=== PATIENT | male | born 1990 | race Caucasian/White ===

== ENCOUNTER 2022-08-17 23:26 | Emergency (ER) | payer OTHER ==
[~2022-08-17] VITALS: Ht 180.3 cm; Wt 79.5 kg
[2022-08-17 23:41] VITALS: BP 111/78
== END 2022-08-18 02:03 | disposition left against medical advice (07) ==
LOC: ER 23:26
DX: R11.2 Nausea with vomiting, unspecified (principal); R50.9 Fever, unspecified; R51.9 Headache, unspecified; Z53.21 Procedure and treatment not carried out due to patient leaving prior to being seen by health care provider

== ENCOUNTER 2022-08-18 11:04 | Inpatient (IN) | payer OTHER ==
[~2022-08-18] VITALS: Ht 180.3 cm; Wt 84.3 kg
[2022-08-18 11:30] LABS: Hematocrit 42.6 % (41.0-53.0); Hemoglobin 14.7 g/dL (13.5-17.5); Mean Corpuscular Hemoglobin 29.9 pg (28.0-32.0); Mean Corpuscular Hgb Conc. 34.5 g/dL (32.0-36.0); Mean Corpuscular Volume 86.5 fL (80.0-100.0); Red Blood Cells 4.92 10^6/uL (4.5-5.90); Red Cell Distribution Width 12.8 % (11.8-14.3); White Blood Cell 16.9 10^3/uL (4.4-10.8)
[2022-08-18] MEDS ORDERED: LORazepam 2MG/ML-1ML VIAL IV ONE (11:30)
[2022-08-18] MEDS ORDERED: SODIUM CHLORIDE 0.9% 1,000 ML IV ONE ×3 (11:30→17:15)
[2022-08-18 11:45] LABS: Albumin 2.9 g/dL (3.4-5.0); BUN/Creatinine Ratio 13.8 (10.0-20.0); Calcium 8.7 mg/dL (8.5-10.1); Potassium 3.5 mmol/L (3.5-5.1)
[2022-08-18 11:46] LABS: Bilirubin, Total 0.9 mg/dL (0.2-1.0); Total Protein 7.4 g/dL (6.4-8.2)
[2022-08-18 12:18] LABS: Basophils % (manual) 0 (0.0-2.0); Blast Cells 0; Eosinophils % (manual) 0 (0-7); Metamyelocytes % 0; Myelocytes % 0; Promyelocytes % 0; Reactive Lymphocytes 0
[2022-08-18 13:14] LABS: Band Neutrophils % (manual) 14; Lymphocytes % (manual) 4 (10.0-50.0); Monocytes % (manual) 1 (0-12)
[2022-08-18] MEDS ORDERED: AZITHROMYCIN 500MG/ 250ML 250 ML IV ONE (14:00)
[2022-08-18] MEDS ORDERED: ENOXAPARIN SOD 80 MG/0.8ML SYRINGE SC ONE (14:00)
[2022-08-18] MEDS ORDERED: cefTRIAXone 1GM/50ML D5W 50 ML IV ONE (14:00)
[2022-08-18] MEDS ORDERED: IOHEXOL 350 MG/ML 100ML IJ ONE (14:12)
[2022-08-18] MEDS ORDERED: HEPARIN SODIUM (PORCINE) 5000 UNITS/ML 1ML VIAL IV ONE (17:00)
[2022-08-18] MEDS ORDERED: HEPARIN DRIP/D5W 100UNITS/ML 250 ML IV SCH (17:00)
[2022-08-18] MEDS ORDERED: ASPirin 325 MG TAB PO ONE (17:15)
[2022-08-18] MEDS ORDERED: MORPHINE SULFATE 4 MG/ML SYR/VIAL IV ONE (17:15)
[2022-08-18] MEDS ORDERED: NITROGLYCERIN 0.4 MG SL TAB SL PRN (17:15)
[2022-08-18] MEDS ORDERED: PANTOPRAZOLE 40 MG/10 ML VIAL INJ IV ONE (17:15)
[2022-08-18] MEDS ORDERED: ALBUTEROL SULF 2.5 MG/0.5ML(0.5%) NEB SOLN NEB PRN (17:15)
[2022-08-18] MEDS ORDERED: IPRATROPIUM BROM 0.5 MG/2.5ML INH SOL NEB PRN (17:15)
[2022-08-18 17:31] LABS: Hematocrit 39.1 % (41.0-53.0); Hemoglobin 13.4 g/dL (13.5-17.5); Mean Corpuscular Hgb Conc. 34.3 g/dL (32.0-36.0); Mean Corpuscular Volume 87.5 fL (80.0-100.0); Red Blood Cells 4.47 10^6/uL (4.5-5.90); Red Cell Distribution Width 12.9 % (11.8-14.3); White Blood Cell 16.5 10^3/uL (4.4-10.8)
[2022-08-18 17:35] VITALS: BP 123/76
[2022-08-18 17:37] LABS: INR 1.09 (0.9-1.15); Partial Thromboplastin Time 39.5 sec (24.6-33.4)
[2022-08-18] MEDS: SODIUM CHLORIDE 0.9% 1,000 ML IV SCH ×2 (17:54→23:55)
[2022-08-18] MEDS: MORPHINE SULFATE INJ 2 MG/ml SYRG IV PRN (18:08)
[2022-08-18 18:16] LABS: Basophils % (manual) 0 (0.0-2.0); Blast Cells 0; Metamyelocytes % 0; Myelocytes % 0; Promyelocytes % 0; Reactive Lymphocytes 0
[2022-08-18] MEDS: IPRATROPIUM BROM 0.5 MG/2.5ML INH SOL NEB SCH (18:16)
[2022-08-18] MEDS: ALBUTEROL SULF 2.5 MG/0.5ML(0.5%) NEB SOLN NEB SCH (18:17)
[2022-08-18 19:39] LABS: Band Neutrophils % (manual) 6; Eosinophils % (manual) 1 (0-7); Lymphocytes % (manual) 1 (10.0-50.0); Monocytes % (manual) 13 (0-12)
[2022-08-18 20:22] LABS: Urine Bacteria NONE SEEN /hpf (None Seen); Urine Blood 1+ /uL (Negative); Urine Specific Gravity 1.032 (1.001-1.035); Urine WBC 2 /hpf (0 - 3)
[2022-08-18 20:37] LABS: Alcohol, Urine < 3.0 mg/dL (0-10); Amphetamine Screen, Urine NEGATIVE (NEGATIVE); Barbiturate Scree,Urine NEGATIVE (NEGATIVE); Benzodiazephine Screen, Urine NEGATIVE (NEGATIVE); Cannabinoid Screen, Urine POSITIVE (NEGATIVE)
[2022-08-18 20:44] LABS: Cocaine Screen, Urine POSITIVE (NEGATIVE); Opiate Scree,Urine POSITIVE (NEGATIVE); Phencyclidine Screen, Urine NEGATIVE (NEGATIVE)
[2022-08-18] MEDS ORDERED: ACETAMINOPHEN 325 MG TAB PO ONE (22:00)
[2022-08-18] MEDS: ATORVASTATIN 20 MG TAB PO SCH (22:00)
[2022-08-18] MEDS: HYDROcodone-ACET 5/325MG TAB PO PRN (22:32)
[2022-08-18] MEDS: ONDANSETRON HCL 4 MG/2 ML VIAL IV PRN (22:33)
[2022-08-19] MEDS: ALBUTEROL SULF 2.5 MG/0.5ML(0.5%) NEB SOLN NEB SCH ×4 (00:37→18:51)
[2022-08-19] MEDS: IPRATROPIUM BROM 0.5 MG/2.5ML INH SOL NEB SCH ×4 (00:37→18:51)
[2022-08-19 00:55] LABS: INR 1.1 (0.9-1.15)
[2022-08-19 00:56] LABS: Partial Thromboplastin Time 95.9 sec (24.6-33.4)
[2022-08-19] MEDS ORDERED: HEPARIN DRIP/D5W 100UNITS/ML 250 ML IV SCH ×2 (02:05→17:45)
[2022-08-19] MEDS: MORPHINE SULFATE INJ 2 MG/ml SYRG IV PRN ×2 (02:34→08:10)
[2022-08-19] MEDS: HYDROcodone-ACET 5/325MG TAB PO PRN ×2 (05:01→14:27)
[2022-08-19 06:08] LABS: INR 1.03 (0.9-1.15); Partial Thromboplastin Time 60.6 sec (24.6-33.4)
[2022-08-19 06:20] LABS: Alanine Aminotransferase 22 U/L (16-61); Aspartate Aminotransferase 15 U/L (15-37); BUN/Creatinine Ratio 13.2 (10.0-20.0); Blood Urea Nitrogen 9 mg/dL (7-18); Calcium 8.6 mg/dL (8.5-10.1); Carbon Dioxide 24 mmol/L (21-32); GFR African American 175 mL/min; GFR Non-African American 145 mL/min; Glucose 99 mg/dL (74-106)
[2022-08-19 06:25] LABS: Alkaline Phosphatase 62 U/L (45-117); Anion Gap 8 (5-15); Bilirubin, Total 0.8 mg/dL (0.2-1.0); Chloride 101 mmol/L (98-107); Potassium 3.7 mmol/L (3.5-5.1); Sodium 133 mmol/L (136-145)
[2022-08-19 06:26] LABS: Albumin 2.3 g/dL (3.4-5.0)
[2022-08-19] MEDS: SODIUM CHLORIDE 0.9% 1,000 ML IV SCH ×2 (06:31→13:31)
[2022-08-19 06:45] LABS: Hematocrit 37.9 % (41.0-53.0); Hemoglobin 13.2 g/dL (13.5-17.5); Mean Corpuscular Hemoglobin 30.4 pg (28.0-32.0); Mean Corpuscular Hgb Conc. 34.8 g/dL (32.0-36.0); Mean Corpuscular Volume 87.3 fL (80.0-100.0); Red Blood Cells 4.35 10^6/uL (4.5-5.90); Red Cell Distribution Width 13.2 % (11.8-14.3); White Blood Cell 12.3 10^3/uL (4.4-10.8)
[2022-08-19 06:53] LABS: Basophils % (manual) 0 (0.0-2.0); Blast Cells 0; Eosinophils % (manual) 0 (0-7); Metamyelocytes % 0; Myelocytes % 0; Promyelocytes % 0; Reactive Lymphocytes 0
[2022-08-19] MEDS: ONDANSETRON HCL 4 MG/2 ML VIAL IV PRN ×2 (08:24→17:46)
[2022-08-19] MEDS: HEPARIN DRIP/D5W 100UNITS/ML 250 ML IV SCH ×2 (08:45→13:00)
[2022-08-19 08:48] LABS: Band Neutrophils % (manual) 11; Lymphocytes % (manual) 6 (10.0-50.0); Monocytes % (manual) 9 (0-12)
[2022-08-19] MEDS: NITROGLYCERIN 0.4MG/HR TOPICAL PATCH TD SCH (10:17)
[2022-08-19] MEDS: ASPirin 81 mg TAB PO SCH (10:17)
[2022-08-19] MEDS: AZITHROMYCIN 500MG/ 250ML 250 ML IV SCH (10:17)
[2022-08-19] MEDS: cefTRIAXone 1GM/50ML D5W 50 ML IV SCH (10:17)
[2022-08-19] MEDS: PANTOPRAZOLE 40 MG/10 ML VIAL INJ IV SCH (10:17)
[2022-08-19 12:35] LABS: INR 0.99 (0.9-1.15); Partial Thromboplastin Time 50.9 sec (24.6-33.4)
[2022-08-19 14:42] LABS: Cholesterol 107 mg/dL (< 200)
[2022-08-19 14:51] LABS: HDL Cholesterol 50 mg/dL (40-59); LDL Cholesterol 30 mg/dL (< 100); Triglycerides 66 mg/dL (< 150)
[2022-08-19 16:52] LABS: INR 0.97 (0.9-1.15); Partial Thromboplastin Time 39.2 sec (24.6-33.4)
[2022-08-19] MEDS ORDERED: LORazepam 2MG/ML-1ML VIAL IV ONE (17:45)
[2022-08-19] MEDS ORDERED: HYDROcodone-ACET 10/325MG TAB PO ONE (21:00)
[2022-08-19] MEDS: ATORVASTATIN 20 MG TAB PO SCH (21:48)
[2022-08-20] VITALS (7 sets, daily range): BP systolic 96–118; BP diastolic 60–85
[2022-08-20 00:14] LABS: INR 0.95 (0.9-1.15); Partial Thromboplastin Time 48.7 sec (24.6-33.4)
[2022-08-20] MEDS: IPRATROPIUM BROM 0.5 MG/2.5ML INH SOL NEB SCH ×5 (00:15→18:06)
[2022-08-20] MEDS: ALBUTEROL SULF 2.5 MG/0.5ML(0.5%) NEB SOLN NEB SCH ×5 (00:15→18:06)
[2022-08-20] MEDS: SODIUM CHLORIDE 0.9% 1,000 ML IV SCH ×5 (00:48→22:45)
[2022-08-20] MEDS ORDERED: MORPHINE SULFATE INJ 2 MG/ml SYRG IV PRN (04:00)
[2022-08-20] MEDS: ONDANSETRON HCL 4 MG/2 ML VIAL IV PRN ×3 (04:51→21:13)
[2022-08-20] MEDS ORDERED: HYDROcodone-ACET 7.5/325MG TAB PO ONE (07:00)
[2022-08-20 07:19] LABS: INR 0.91 (0.9-1.15); Partial Thromboplastin Time 44.8 sec (24.6-33.4)
[2022-08-20] MEDS ORDERED: HEPARIN DRIP/D5W 100UNITS/ML 250 ML IV SCH (08:45)
[2022-08-20] MEDS: PANTOPRAZOLE 40 MG/10 ML VIAL INJ IV SCH (13:34)
[2022-08-20] MEDS: ASPirin 81 mg TAB PO SCH (13:34)
[2022-08-20] MEDS: NITROGLYCERIN 0.4MG/HR TOPICAL PATCH TD SCH (13:35)
[2022-08-20] MEDS: cefTRIAXone 1GM/50ML D5W 50 ML IV SCH (14:53)
[2022-08-20] MEDS: AZITHROMYCIN 500MG/ 250ML 250 ML IV SCH (15:43)
[2022-08-20 16:42] LABS: INR 0.92 (0.9-1.15); Partial Thromboplastin Time 43.8 sec (24.6-33.4)
[2022-08-20] MEDS: HEPARIN DRIP/D5W 100UNITS/ML 250 ML IV SCH (16:51)
[2022-08-20] MEDS: HYDROcodone-ACET 5/325MG TAB PO PRN ×2 (17:50→22:47)
[2022-08-20] MEDS: ATORVASTATIN 20 MG TAB PO SCH (21:13)
[2022-08-20 23:10] LABS: INR 0.96 (0.9-1.15)
[2022-08-21] MEDS: ONDANSETRON HCL 4 MG/2 ML VIAL IV PRN ×4 (01:43→13:35)
[2022-08-21] MEDS: HEPARIN DRIP/D5W 100UNITS/ML 250 ML IV SCH (01:45)
[2022-08-21] MEDS: SODIUM CHLORIDE 0.9% 1,000 ML IV SCH ×3 (01:46→12:55)
[2022-08-21] MEDS: HYDROcodone-ACET 5/325MG TAB PO PRN ×2 (03:16→08:58)
[2022-08-21 05:00] VITALS: BP 114/78
[2022-08-21] MEDS: ALBUTEROL SULF 2.5 MG/0.5ML(0.5%) NEB SOLN NEB SCH ×4 (06:00→18:48)
[2022-08-21] MEDS: IPRATROPIUM BROM 0.5 MG/2.5ML INH SOL NEB SCH ×4 (06:00→18:48)
[2022-08-21 08:00] VITALS: BP 106/61
[2022-08-21 08:55] VITALS: BP 116/68
[2022-08-21] MEDS: cefTRIAXone 1GM/50ML D5W 50 ML IV SCH (08:58)
[2022-08-21] MEDS: PANTOPRAZOLE 40 MG/10 ML VIAL INJ IV SCH (09:40)
[2022-08-21] MEDS: AZITHROMYCIN 500MG/ 250ML 250 ML IV SCH (09:40)
[2022-08-21 10:10] LABS: INR 1.01 (0.9-1.15); Partial Thromboplastin Time 46.4 sec (24.6-33.4)
[2022-08-21] MEDS: NITROGLYCERIN 0.4MG/HR TOPICAL PATCH TD SCH (10:33)
[2022-08-21] MEDS: ASPirin 81 mg TAB PO SCH (10:33)
[2022-08-21] MEDS ORDERED: HEPARIN DRIP/D5W 100UNITS/ML 250 ML IV SCH ×2 (10:45→18:00)
[2022-08-21 13:00] VITALS: BP 106/61
[2022-08-21] MEDS: LORazepam 2MG/ML-1ML VIAL IV PRN ×3 (13:36→21:03)
[2022-08-21 17:26] LABS: INR 1.03 (0.9-1.15); Partial Thromboplastin Time 47.9 sec (24.6-33.4)
[2022-08-21 20:00] VITALS: BP 118/68
[2022-08-21] MEDS: ATORVASTATIN 20 MG TAB PO SCH (21:03)
[2022-08-21 22:00] VITALS: BP 118/68
[2022-08-22 01:10] LABS: INR 1.11 (0.9-1.15); Partial Thromboplastin Time 61.9 sec (24.6-33.4)
[2022-08-22 02:34] VITALS: BP 118/82
[2022-08-22 05:00] VITALS: BP 110/68
[2022-08-22] MEDS: IPRATROPIUM BROM 0.5 MG/2.5ML INH SOL NEB SCH ×4 (06:00→18:24)
[2022-08-22] MEDS: ALBUTEROL SULF 2.5 MG/0.5ML(0.5%) NEB SOLN NEB SCH ×4 (06:00→18:24)
[2022-08-22] MEDS: HYDROcodone-ACET 5/325MG TAB PO PRN ×3 (06:34→19:58)
[2022-08-22] MEDS: SODIUM CHLORIDE 0.9% 1,000 ML IV SCH ×3 (07:55→21:15)
[2022-08-22] MEDS: cefTRIAXone 1GM/50ML D5W 50 ML IV SCH (09:36)
[2022-08-22] MEDS: ASPirin 81 mg TAB PO SCH (09:40)
[2022-08-22] MEDS: PANTOPRAZOLE 40 MG/10 ML VIAL INJ IV SCH (09:40)
[2022-08-22] MEDS ORDERED: HEPARIN DRIP/D5W 100UNITS/ML 250 ML IV SCH (09:45)
[2022-08-22] MEDS: NITROGLYCERIN 0.4MG/HR TOPICAL PATCH TD SCH (09:51)
[2022-08-22] MEDS: AZITHROMYCIN 500MG/ 250ML 250 ML IV SCH (10:28)
[2022-08-22 12:00] LABS: INR 1.11 (0.9-1.15)
[2022-08-22 13:00] VITALS: BP 103/60
[2022-08-22] MEDS ORDERED: APIXABAN 5 MG TAB PO ONE (13:15)
[2022-08-22] MEDS: LOPERAMIDE HCL 2 MG CAP/TAB PO PRN (15:00)
[2022-08-22] MEDS: ONDANSETRON HCL 4 MG/2 ML VIAL IV PRN ×2 (15:00→20:44)
[2022-08-22 16:00] VITALS: BP 101/53
[2022-08-22 20:00] VITALS: BP 105/54
[2022-08-22 22:00] VITALS: BP 105/54
[2022-08-22] MEDS: ATORVASTATIN 20 MG TAB PO SCH (22:05)
[2022-08-22] MEDS: APIXABAN 5 MG TAB PO SCH (22:05)
[2022-08-23] MEDS: HYDROcodone-ACET 5/325MG TAB PO PRN ×6 (00:39→21:41)
[2022-08-23] MEDS: ONDANSETRON HCL 4 MG/2 ML VIAL IV PRN ×6 (00:40→21:42)
[2022-08-23] MEDS: SODIUM CHLORIDE 0.9% 1,000 ML IV SCH ×4 (03:55→23:55)
[2022-08-23 05:00] VITALS: BP 111/58
[2022-08-23] MEDS: IPRATROPIUM BROM 0.5 MG/2.5ML INH SOL NEB SCH ×3 (06:35→19:43)
[2022-08-23] MEDS: ALBUTEROL SULF 2.5 MG/0.5ML(0.5%) NEB SOLN NEB SCH ×3 (06:35→19:43)
[2022-08-23 07:30] VITALS: BP 123/72
[2022-08-23] MEDS: cefTRIAXone 1GM/50ML D5W 50 ML IV SCH (08:43)
[2022-08-23 09:00] VITALS: BP 123/72
[2022-08-23 09:45] LABS: Basophils # (auto) 0.4 10 ^3/uL (0-0.2); Basophils % (auto) 1.8 % (0.0-2.0); Eosinophils # (auto) 0 10 ^3/uL (0-0.8); Eosinophils % (auto) 0.2 % (0.0-7.0); Hematocrit 37.4 % (41.0-53.0); Hemoglobin 12.6 g/dL (13.5-17.5); Lymphocytes # (auto) 1.3 10 ^3/uL (0.4-5.4); Lymphocytes % (auto) 6.4 % (10.0-50.0); Mean Corpuscular Hemoglobin 29.7 pg (28.0-32.0); Mean Corpuscular Hgb Conc. 33.6 g/dL (32.0-36.0); Mean Corpuscular Volume 88.3 fL (80.0-100.0); Monocytes # (auto) 1.8 10 ^3/uL (0-1.3); Monocytes % (auto) 9.2 % (0.0-12.0); Neutrophils # (auto) 16.5 10 ^3/uL (1.6-8.6); Neutrophils % (auto) 82.4 % (37.0-80.0); Red Blood Cells 4.24 10^6/uL (4.5-5.90); Red Cell Distribution Width 13.3 % (11.8-14.3)
[2022-08-23 10:02] LABS: BUN/Creatinine Ratio 4.5 (10.0-20.0); Calcium 7.9 mg/dL (8.5-10.1)
[2022-08-23 10:23] LABS: Potassium 2.9 mmol/L (3.5-5.1)
[2022-08-23] MEDS: AZITHROMYCIN 500MG/ 250ML 250 ML IV SCH (10:30)
[2022-08-23] MEDS: PANTOPRAZOLE 40 MG/10 ML VIAL INJ IV SCH (10:42)
[2022-08-23] MEDS: APIXABAN 5 MG TAB PO SCH ×2 (10:48→21:41)
[2022-08-23] MEDS: LOPERAMIDE HCL 2 MG CAP/TAB PO PRN (10:48)
[2022-08-23] MEDS: ASPirin 81 mg TAB PO SCH (10:48)
[2022-08-23] MEDS: NITROGLYCERIN 0.4MG/HR TOPICAL PATCH TD SCH (10:50)
[2022-08-23 13:00] VITALS: BP 121/72
[2022-08-23] MEDS: POTASSIUM CHL 20MEQ/100ML 100 ML IV SCH ×3 (13:03→21:23)
[2022-08-23 17:04] VITALS: BP 107/57
[2022-08-23] MEDS ORDERED: POTASSIUM CHL 20MEQ/100ML 100 ML IV ONE (20:38)
[2022-08-23] MEDS: ATORVASTATIN 20 MG TAB PO SCH (21:41)
[2022-08-23 22:00] VITALS: BP 113/72
[2022-08-24] MEDS: LOPERAMIDE HCL 2 MG CAP/TAB PO PRN ×3 (00:22→22:17)
[2022-08-24] MEDS: HYDROcodone-ACET 5/325MG TAB PO PRN ×5 (01:54→22:18)
[2022-08-24] MEDS: ONDANSETRON HCL 4 MG/2 ML VIAL IV PRN ×5 (01:54→22:18)
[2022-08-24 05:00] VITALS: BP 121/76
[2022-08-24] MEDS: SODIUM CHLORIDE 0.9% 1,000 ML IV SCH ×4 (06:08→21:37)
[2022-08-24] MEDS: IPRATROPIUM BROM 0.5 MG/2.5ML INH SOL NEB SCH ×3 (06:28→19:18)
[2022-08-24] MEDS: ALBUTEROL SULF 2.5 MG/0.5ML(0.5%) NEB SOLN NEB SCH ×3 (06:28→19:18)
[2022-08-24 09:00] VITALS: BP 109/70
[2022-08-24] MEDS: cefTRIAXone 1GM/50ML D5W 50 ML IV SCH (09:05)
[2022-08-24] MEDS: APIXABAN 5 MG TAB PO SCH ×2 (09:06→21:36)
[2022-08-24] MEDS: PANTOPRAZOLE 40 MG/10 ML VIAL INJ IV SCH (09:06)
[2022-08-24] MEDS: ASPirin 81 mg TAB PO SCH (09:06)
[2022-08-24] MEDS: NITROGLYCERIN 0.4MG/HR TOPICAL PATCH TD SCH (09:13)
[2022-08-24] MEDS: AZITHROMYCIN 500MG/ 250ML 250 ML IV SCH (10:23)
[2022-08-24 12:30] VITALS: BP 109/109
[2022-08-24] MEDS ORDERED: IBUPROFEN 800 MG TAB PO PRN (13:45)
[2022-08-24] MEDS: PROMETHAZINE HCL 25 MG/ML 1ML IV PRN (13:56)
[2022-08-24] MEDS: GABAPENTIN 300 MG CAP PO SCH ×2 (13:56→21:39)
[2022-08-24 17:00] VITALS: BP 109/61
[2022-08-24 20:00] VITALS: BP 111/68
[2022-08-24] MEDS: ATORVASTATIN 20 MG TAB PO SCH (21:36)
[2022-08-24 22:00] VITALS: BP 111/68
[2022-08-25] MEDS: HYDROcodone-ACET 5/325MG TAB PO PRN ×3 (02:38→10:57)
[2022-08-25] MEDS: PROMETHAZINE HCL 25 MG/ML 1ML IV PRN (02:39)
[2022-08-25 05:00] VITALS: BP 99/53
[2022-08-25] MEDS: GABAPENTIN 300 MG CAP PO SCH ×2 (05:37→14:21)
[2022-08-25] MEDS: ALBUTEROL SULF 2.5 MG/0.5ML(0.5%) NEB SOLN NEB SCH ×2 (06:04→12:18)
[2022-08-25] MEDS: IPRATROPIUM BROM 0.5 MG/2.5ML INH SOL NEB SCH ×2 (06:04→12:18)
[2022-08-25] MEDS: NITROGLYCERIN 0.4MG/HR TOPICAL PATCH TD SCH (08:46)
[2022-08-25] MEDS: PANTOPRAZOLE 40 MG/10 ML VIAL INJ IV SCH (08:50)
[2022-08-25] MEDS: APIXABAN 5 MG TAB PO SCH (08:53)
[2022-08-25] MEDS: ASPirin 81 mg TAB PO SCH (08:54)
[2022-08-25] MEDS: cefTRIAXone 1GM/50ML D5W 50 ML IV SCH (08:55)
[2022-08-25] MEDS: SODIUM CHLORIDE 0.9% 1,000 ML IV SCH ×2 (09:01→10:01)
[2022-08-25 09:22] VITALS: BP 114/59
[2022-08-25 11:01] VITALS: BP 118/56
[2022-08-25] MEDS ORDERED: APIX5TAB PO (11:17)
[2022-08-25] MEDS ORDERED: AZIT250T PO (11:17)
[2022-08-25] MEDS ORDERED: HYDR-4902 PO (11:17)
[2022-08-25 12:39] VITALS: BP 130/66
[2022-08-25] MEDS: LOPERAMIDE HCL 2 MG CAP/TAB PO PRN (12:49)
== END 2022-08-25 14:52 | disposition home or self-care (01) | DRG 134 ==
LOC: ER 11:04 → TELE 17:06 → TELE-WESTW 08-19 23:31
PROVIDERS: ADMIT Registered Nurse; ATTEND Internal Medicine
DX: I26.99 Other pulmonary embolism without acute cor pulmonale (principal); J69.0 Pneumonitis due to inhalation of food and vomit; R65.10 Systemic inflammatory response syndrome (SIRS) of non-infectious origin without acute organ dysfunction; E78.5 Hyperlipidemia, unspecified; F17.210 Nicotine dependence, cigarettes, uncomplicated; F19.10 Other psychoactive substance abuse, uncomplicated; F14.10 Cocaine abuse, uncomplicated; F12.10 Cannabis abuse, uncomplicated; F11.23 Opioid dependence with withdrawal; M54.9 Dorsalgia, unspecified; Z86.711 Personal history of pulmonary embolism
CPT/HCPCS: 36415; 70450; 71045; 71275; 72040; 72070; 80048; 80053; 80061; 80307; 81001; 83036; 83605; 84443; 84484; 85007; 85025; 85027; 85379; 85610; 85730; 87040; 93005; 93306; 93970; 94640; 96365; C9113; G0378; J0696; J2405; J3480